=== PATIENT | female | born 1990 | race Caucasian/White ===

== ENCOUNTER 2019-01-07 17:38 | Emergency (ER) | payer MEDICAID ==
[~2019-01-07] VITALS: Ht 167.6 cm; Wt 82.6 kg
[2019-01-07 18:00] VITALS: BP 99/42
--- NOTE | 2019-01-07 19:55 | NUR ---
PT CO RASH FROM POSSIBLE ALLERGIES X 2 WEEKS ACCOMPANIED BY INCREASED FATIGUE. PT DENIES PAIN. SHE STATES SHE WAS GIVEN AN ABT FROM ANOTHER DOCTOR BUT CANNOT REMEMBER NAME. -- PMH: DENIES
--- NOTE | 2019-01-07 19:55 | NUR ---
PT AMBULATED TO BED 12.
[2019-01-07 20:40] VITALS: BP 98/60
--- NOTE | 2019-01-07 20:40 | NUR ---
Patient discharged with v/s stable. Written and verbal after care instructions given and explained. Patient alert, oriented and verbalized understanding of instructions. Ambulatory with steady gait. All questions addressed prior to discharge. ID band removed. Patient advised to follow up with PMD. Rx of Prednisone, Benadryl, and Keflex given. Patient educated on indication of medication including possible reaction and side effects. Opportunity to ask questions provided and answered.
== END 2019-01-07 20:40 | disposition home or self-care (01) ==
LOC: MED 17:38
DX: R21 Rash and other nonspecific skin eruption (principal)
CPT/HCPCS: 99283